=== PATIENT | female | born 1940 | race African-American/Black ===

== ENCOUNTER 2021-12-09 18:40 | Inpatient (IN) ==
[2021-12-09 19:12] LABS: Basophils # 0.1 10*3/uL (0.0-0.2); Basophils % 1.5 % (0.0-0.8); Eosinophils # 0.1 10*3/uL (0.0-0.87); Eosinophils % 2.2 % (0.00-10.9); Hematocrit 39.9 VOL% (35.7-47.0); Hemoglobin 13.3 GM/DL (12.0-16.0); Immature Granulocytes % 0.5 %; Immature Granulocytes Absolute 0.03 #; Lymphocytes # 2.5 10*3/uL (1.4-4.0); Lymphocytes % 42.2 % (21.3-54.2); Mean Corpuscular HGB Conc 33.3 GM/DL (32-36); Mean Corpuscular Volume 94.3 FL (87-102); Mean Platelet Volume 10.4 FL (9.6-12.0); Monocytes # 0.4 10*3/uL (0.11-0.8); Monocytes % 5.9 % (1.7-12.7); Neutrophils % 47.7 % (38.7-73.9); Platelet Count 242 T/CUMM (130-400); Red Blood Count 4.23 MC/CUMM (3.8-5.5)
[2021-12-09 19:39] LABS: Albumin 4.4 G/DL (3.4-5.0); Bilirubin,Total 0.4 MG/DL (0.20-1.00); Potassium 3.7 MMOL/L (3.5-5.1); Total Protein 8.5 G/DL (6.4-8.2)
[2021-12-09] MEDS ORDERED: ONDANSETRON 4 MG/2 ML VIAL IV STA (22:48)
[2021-12-09] MEDS ORDERED: MECLIZINE 25 MG TABLET PO STA (22:48)
[2021-12-09] MEDS ORDERED: SODIUM CHLORIDE 0.9% 500 ML IV STA (22:48)
[2021-12-10 01:08] LABS: Mucus,Urine Occasional /LPF (Occasional); RBC,Urine <1 /HPF (0-4); Squamous Epithelial Cell,Urine Occasional /HPF (0-10)
[2021-12-10 01:10] LABS: Bilirubin,Urine Negative (Negative); Blood, Urine Negative (Negative); Glucose,Urine (UA) Negative (Negative); Ketones,Urine Negative (Negative); Nitrite,Urine Negative (Negative); Protein,Urine Negative (Negative); Urine Appearance Clear (Clear); Urine Color Yellow (Yellow); Urine Urobilinogen 0.2 eU/dL (<2.0); Urine pH 6.5 (4.5-8.0)
[2021-12-10] MEDS ORDERED: LABETALOL 20 MG/4 ML SYRINGE IV PRN (01:13)
[2021-12-10] MEDS ORDERED: DEXTROSE 10% 250 ML BAG IV PRN (01:19)
[2021-12-10] MEDS ORDERED: GLUCAGON 1 MG VIAL IM PRN (01:19)
[2021-12-10] MEDS ORDERED: SODIUM CHLORIDE 0.9% 1,000 ML IV SCH (01:30)
[2021-12-10 01:47] LABS: Barbiturates Screen,Urine Negative (Negative); Benzodiazepines Screen,Urine Negative (Negative); Cannabinoid Screen,Urine Negative (Negative); Opiate Screen,Urine Negative (Negative); Phencyclidine Screen,Urine Negative (Negative)
[2021-12-10] MEDS: ENOXAPARIN 30 MG/0.3 ML SYRINGE SUBCUT SCH (02:56)
[2021-12-10 06:54] LABS: Alanine Aminotransferase 56 U/L (13-56); Albumin 3.2 G/DL (3.4-5.0); Alkaline Phosphatase 56 U/L (45-117); Aspartate Amino Transferase 86 U/L (0-37); Bilirubin,Total < 0.39 MG/DL (0.20-1.00); Blood Urea Nitrogen 13 MG/DL (7-18); Calcium 8.7 MG/DL (8.5-10.1); Carbon Dioxide 29 MMOL/L (21-32); Chloride 104 MMOL/L (98-107); Glucose 113 MG/DL (74-106); Potassium 3.4 MMOL/L (3.5-5.1); Sodium 136 MMOL/L (136-145); Total Protein 6.7 G/DL (6.4-8.2)
[2021-12-10 07:09] LABS: Risk Ratio 4.67; VLDL Cholesterol 46.4 MG/DL
[2021-12-10] MEDS: INSULIN REGULAR 100 UNIT/ML SUBCUT SCH ×4 (09:05→21:25)
[2021-12-10 10:49] LABS: Hepatitis B Core IgM Quant < 0.05 Index; Hepatitis B Surface Ag Quant < 0.10 Index; Hepatitis B Surface Ag Result Non-Reactive (NonReactive); Hepatitis C Virus Ab Quant 0.16 Index; Hepatitis C Virus Ab Result Non-Reactive (NonReactive)
[2021-12-10] MEDS ORDERED: MECLIZINE 25 MG TABLET PO PRN (11:05)
[2021-12-10] MEDS: ASPIRIN 325 MG TABLET PO SCH (12:43)
[2021-12-10] MEDS: PANTOPRAZOLE 40 MG TABLET PO SCH (12:44)
[2021-12-10] MEDS: POTASSIUM CHLORIDE 20 MEQ TABLET PO PRN ×2 (12:44→15:00)
[2021-12-10] MEDS: SERTRALINE 100 MG TABLET PO SCH (13:00)
[2021-12-10] MEDS: GLIMEPIRIDE 4 MG TABLET PO SCH ×2 (13:00→21:23)
[2021-12-10] MEDS ORDERED: ERGOCALCIFEROL 50,000 UNIT CAPSULE PO SCH (18:00)
[2021-12-10] MEDS: ROSUVASTATIN 20 MG TABLET PO SCH (21:22)
[2021-12-10] MEDS: LATANOPROST 0.005% OPH SOLN 2.5 ML BOTTLE BOTH EYES SCH (21:23)
[2021-12-11] MEDS: ENOXAPARIN 30 MG/0.3 ML SYRINGE SUBCUT SCH (03:21)
[2021-12-11 05:44] LABS: Calcium 8.9 MG/DL (8.5-10.1); Osmolality,Calculated 273.8 MOS/KG (273-304); Potassium 4.3 MMOL/L (3.5-5.1)
[2021-12-11] MEDS: INSULIN REGULAR 100 UNIT/ML SUBCUT SCH ×4 (07:33→20:57)
[2021-12-11] MEDS ORDERED: GLIMEPIRIDE 4 MG TABLET PO SCH (08:00)
[2021-12-11] MEDS: PANTOPRAZOLE 40 MG TABLET PO SCH (08:32)
[2021-12-11] MEDS: ASPIRIN 325 MG TABLET PO SCH (08:32)
[2021-12-11] MEDS: SERTRALINE 100 MG TABLET PO SCH (08:32)
[2021-12-11] MEDS: DEXTROSE 5% NACL 0.9% 1,000 ML IV SCH (12:20)
[2021-12-11] MEDS ORDERED: TUBERCULIN SKIN TEST 0.1 ML SYRINGE INTRADERM ONE (20:47)
[2021-12-11] MEDS: ROSUVASTATIN 20 MG TABLET PO SCH (20:56)
[2021-12-11] MEDS: LATANOPROST 0.005% OPH SOLN 2.5 ML BOTTLE BOTH EYES SCH (20:57)
[2021-12-12] MEDS: DEXTROSE 5% NACL 0.9% 1,000 ML IV SCH (01:24)
[2021-12-12] MEDS: ENOXAPARIN 30 MG/0.3 ML SYRINGE SUBCUT SCH (01:25)
[2021-12-12] MEDS: INSULIN REGULAR 100 UNIT/ML SUBCUT SCH ×4 (07:20→20:23)
[2021-12-12] MEDS: SERTRALINE 100 MG TABLET PO SCH (08:22)
[2021-12-12] MEDS: PANTOPRAZOLE 40 MG TABLET PO SCH (08:22)
[2021-12-12] MEDS: ASPIRIN 325 MG TABLET PO SCH (08:22)
[2021-12-12 08:37] LABS: Basophils # 0.1 10*3/uL (0.0-0.2); Basophils % 1.9 % (0.0-0.8); Eosinophils # 0.2 10*3/uL (0.0-0.87); Eosinophils % 3.7 % (0.00-10.9); Hematocrit 37.6 VOL% (35.7-47.0); Hemoglobin 12.2 GM/DL (12.0-16.0); Immature Granulocytes % 0.2 %; Immature Granulocytes Absolute 0.01 #; Lymphocytes # 1.8 10*3/uL (1.4-4.0); Lymphocytes % 39.2 % (21.3-54.2); Mean Corpuscular HGB Conc 32.4 GM/DL (32-36); Mean Corpuscular Volume 95.7 FL (87-102); Mean Platelet Volume 10.3 FL (9.6-12.0); Monocytes # 0.3 10*3/uL (0.11-0.8); Monocytes % 6.5 % (1.7-12.7); Neutrophils % 48.5 % (38.7-73.9); Platelet Count 232 T/CUMM (130-400); Red Blood Count 3.93 MC/CUMM (3.8-5.5); Red Cell Distribution Width 14.3 % (9.3-17.3); White Blood Count 4.6 T/CUMM (4-12)
[2021-12-12 08:56] LABS: Calcium 8.5 MG/DL (8.5-10.1); Osmolality,Calculated 274.8 MOS/KG (273-304); Potassium 4.1 MMOL/L (3.5-5.1)
[2021-12-12] MEDS: ROSUVASTATIN 20 MG TABLET PO SCH (20:22)
[2021-12-12] MEDS: LATANOPROST 0.005% OPH SOLN 2.5 ML BOTTLE BOTH EYES SCH (20:23)
[2021-12-13] MEDS: ENOXAPARIN 30 MG/0.3 ML SYRINGE SUBCUT SCH (02:42)
[2021-12-13] MEDS: INSULIN REGULAR 100 UNIT/ML SUBCUT SCH ×4 (07:18→20:29)
[2021-12-13] MEDS: PANTOPRAZOLE 40 MG TABLET PO SCH (08:21)
[2021-12-13] MEDS: ASPIRIN 325 MG TABLET PO SCH (08:21)
[2021-12-13] MEDS: SERTRALINE 100 MG TABLET PO SCH (08:21)
[2021-12-13] MEDS: ROSUVASTATIN 20 MG TABLET PO SCH (20:28)
[2021-12-13] MEDS: LATANOPROST 0.005% OPH SOLN 2.5 ML BOTTLE BOTH EYES SCH (20:29)
[2021-12-14] MEDS: INSULIN REGULAR 100 UNIT/ML SUBCUT SCH ×4 (07:34→21:33)
[2021-12-14] MEDS: SERTRALINE 100 MG TABLET PO SCH (08:19)
[2021-12-14] MEDS: PANTOPRAZOLE 40 MG TABLET PO SCH (08:19)
[2021-12-14] MEDS: ENOXAPARIN 30 MG/0.3 ML SYRINGE SUBCUT SCH (08:19)
[2021-12-14] MEDS: ASPIRIN 325 MG TABLET PO SCH (08:19)
[2021-12-14 12:27] LABS: Alanine Aminotransferase 117 U/L (13-56); Albumin 3.6 G/DL (3.4-5.0); Alkaline Phosphatase 86 U/L (45-117); Aspartate Amino Transferase 169 U/L (0-37); Bilirubin,Indirect 0.3 MG/DL (0.0-1.0); Bilirubin,Total < 0.39 MG/DL (0.20-1.00); Total Protein 7.9 G/DL (6.4-8.2)
[2021-12-14] MEDS: LATANOPROST 0.005% OPH SOLN 2.5 ML BOTTLE BOTH EYES SCH (21:32)
[2021-12-15] MEDS: INSULIN REGULAR 100 UNIT/ML SUBCUT SCH ×4 (07:44→21:36)
[2021-12-15] MEDS: PANTOPRAZOLE 40 MG TABLET PO SCH (09:21)
[2021-12-15] MEDS: ASPIRIN CHEW 81 MG TABLET PO SCH (09:21)
[2021-12-15] MEDS: ENOXAPARIN 30 MG/0.3 ML SYRINGE SUBCUT SCH (09:22)
[2021-12-15] MEDS: SERTRALINE 50 MG TABLET PO SCH (09:22)
[2021-12-15] MEDS: LATANOPROST 0.005% OPH SOLN 2.5 ML BOTTLE BOTH EYES SCH (21:34)
[2021-12-16] MEDS: INSULIN REGULAR 100 UNIT/ML SUBCUT SCH ×2 (08:01→12:04)
[2021-12-16] MEDS: ASPIRIN CHEW 81 MG TABLET PO SCH (08:47)
[2021-12-16] MEDS: ENOXAPARIN 30 MG/0.3 ML SYRINGE SUBCUT SCH (08:47)
[2021-12-16] MEDS: PANTOPRAZOLE 40 MG TABLET PO SCH (08:48)
[2021-12-16] MEDS: SERTRALINE 50 MG TABLET PO SCH (08:48)
[2021-12-16 12:31] VITALS: BP 119/69
== END 2021-12-16 14:25 | disposition swing bed (61) | DRG 639 ==
LOC: N.EDINP 18:40 → N.ED 18:40 → SUATTDRO 12-10 01:13 → OBSVTOIN 12-10 01:13 → N.EDINP 12-10 15:45 → N.3E 12-10 15:53
PROVIDERS: ADMIT Internal Medicine; ATTEND Internal Medicine